=== PATIENT | female | born 2000 | race Caucasian/White ===

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

== ENCOUNTER 2023-11-22 08:20 | Emergency (ER) | payer OTHER ==
[~2023-11-22] VITALS: Ht 167.6 cm; Wt 104.3 kg
[~2023-11-22 08:20] MED LIST: FLONASE ALLERG9.9 ML NASAL; KETO10TA2 PO; MUCINEX DM ER1 EAC1 PO; SKELAXIN800 MG PO
[2023-11-22] MEDS ORDERED: LEXAPRO20 MG PO (08:32)
[2023-11-22] MEDS ORDERED: INDERAL XL80 MG PO (08:36)
[2023-11-22 09:38] LABS: HEMATOCRIT 42.5 % (36.0-45.00); HEMOGLOBIN 14.5 g/dL (12.0-15.00); MEAN CELL VOLUME 88.3 fL (80.00-100.00); MEAN CORPUSCULAR HEMOGLOBIN 30.1 pg (27.00-32.0); PLATELET COUNT 187 K/uL (150-450); RED BLOOD COUNT 4.81 M/uL (4.00-6.00); RED CELL DISTRIBUTION WIDTH 13.4 % (11.5-14.5)
[2023-11-22 10:06] LABS: BILIRUBIN TOTAL 1.31 mg/dL (0.3-1.2); CALCIUM 9.5 mg/dL (8.5-10.1); CREATININE SERUM 0.91 mg/dL (0.55-1.02); GFR 76.61; GLOBULINA 4.7 G/DL (2.4-3.5); POTASSIUM 3.59 mEq/L (3.5-5.1); TOTAL PROTEIN 8.7 gm/dL (6.4-8.2)
[2023-11-22 11:02] LABS: URINE APPEARANCE Cloudy; URINE BILIRRUBIN Moderate (NEGATIVE); URINE BLOOD Negative; URINE COLOR Dark Yellow; URINE GLUCOSE Negative (NEGATIVE); URINE LEUKOCYTE Moderate; URINE NITRATE Positive
[2023-11-22 11:07] LABS: URINE BACTERIA 8160.9 uL (0.0-1933); URINE RBC 46.8 uL (0.0-20.8); URINE WBC 144.5 uL (0.0-23.2)
[2023-11-22 11:29] LABS: URINE PROTEIN 100 (NEGATIVE)
[2023-11-22] MEDS ORDERED: BACTRIM DS TAB1 EACH PO (11:36)
[2023-11-22] MEDS ORDERED: CEFTRIAXONE SODIUM 1,000 MG VIAL IM ONE (11:45)
[2023-11-22 12:00] LABS: URINE MUCUS HEAVY
== END 2023-11-22 12:14 | disposition home or self-care (01) ==
LOC: ER 08:20
PROVIDERS: General Practice
DX: R42 Dizziness and giddiness (principal); N39.0 Urinary tract infection, site not specified